=== PATIENT | female | born 1980 | race Caucasian/White ===

== ENCOUNTER 2022-04-17 18:17 | Emergency (ER) | payer MEDICAID ==
[~2022-04-17] VITALS: Ht 167.6 cm; Wt 81.6 kg
[2022-04-17] MEDS ORDERED: FAMO-132 PO (20:09)
[2022-04-17] MEDS ORDERED: AMOX500C2 PO (20:09)
[2022-04-17] MEDS ORDERED: AMOXicillin 250 MG CAPSULE ONE (20:12)
[2022-04-17] MEDS ORDERED: AMOXicillin 250 MG CAPSULE PO ONE (20:15)
--- NOTE | 2022-04-17 20:16 | NUR ---
Patient discharged to home in stable condition. Written and verbal after care instructions given. Patient verbalizes understanding of instructions. Stressed follow up or return to ER for worsening s/s. Patient out of ER with steady gait, no acute signs of distress, VSS, all belongings taken, provided a copy of xray results.
[2022-04-17 20:17] VITALS: BP 135/80
== END 2022-04-17 20:17 | disposition home or self-care (01) ==
LOC: ER 18:20
DX: R09.89 Other specified symptoms and signs involving the circulatory and respiratory systems (principal)
CPT/HCPCS: 70360; A4663

== ENCOUNTER 2022-09-05 22:53 | Emergency (ER) | payer MEDICAID, OTHER ==
[~2022-09-05] VITALS: Ht 167.6 cm; Wt 83.5 kg
[~2022-09-05 22:53] MED LIST: AMOX500C2 PO; FAMO-132 PO
--- NOTE | 2022-09-06 00:19 | NUR ---
Dr. Mathis at bedside. MSE in progress.
[2022-09-06 00:32] LABS: HEMATOCRIT 39.3 % (31.2-41.9); MEAN CORPUSCULAR HEMOGLOBIN 31.5 uug (24.7-32.8); MEAN CORPUSCULAR VOLUME 92.4 fL (75.5-95.3); PLATELET COUNT (AUTO) 170 K/uL (179-408)
--- NOTE | 2022-09-06 00:40 | NUR ---
Chaperoned Dr. Mathis for pelvic exam.
[2022-09-06 00:41] LABS: CARBON DIOXIDE 28 mmol/L (21-32); CHLORIDE 103 mmol/L (98-107); GLUCOSE 124 mg/dL (74-106); POTASSIUM 3.6 mmol/L (3.5-5.1); UREA NITROGEN, BLOOD 13 mg/dL (7-18)
[2022-09-06 00:49] LABS: *BILIRUBIN,URIN NEGATIVE (NEGATIVE); *BLOOD, URINE NEGATIVE (NEGATIVE); *CLARITY,URINE CLEAR (CLEAR); *COLOR,URINE YELLOW (YELLOW); *KETONES,URINE NEGATIVE (NEGATIVE); *UROBILINOGEN,URINE 0.2 E.U./dl (NORMAL); LEUKOCYTE ESTERASE ,URINE NEGATIVE (NEGATIVE); NITRITE, URINE NEGATIVE (NEGATIVE); UGLUCOSE NEGATIVE (NEGATIVE)
[2022-09-06 00:55] LABS: ALANINE AMINOTRANSFERASE 27 U/L (14-59); ALKALINE PHOSPHATASE 69 U/L (50-136); ASPARTATE AMINOTRANSFERASE 17 U/L (15-37); BILIRUBIN,DIRECT < 0.1 mg/dL (0.0-0.2); BILIRUBIN,TOTAL 0.2 mg/dL (0.2-1.0); LIPASE 304 U/L (73-393); TOTAL PROTEIN, SERUM 7.1 g/dL (6.4-8.2)
--- NOTE | 2022-09-06 02:02 | NUR ---
Patient discharged to home in stable condition. A/O x 4. NAD noted. Ambulatory with a steady gait. All belongings with patient. Written and verbal after care instructions given. Patient verbalizes understanding of instructions. Stressed follow up or return to ER for worsening s/s.
[2022-09-06 02:05] VITALS: BP 118/74
== END 2022-09-06 02:02 | disposition home or self-care (01) ==
LOC: ER 23:03
DX: R10.30 Lower abdominal pain, unspecified (principal)
CPT/HCPCS: 36415; 83690; 85025; 93005

== ENCOUNTER 2023-01-01 11:33 | Emergency (ER) | payer OTHER ==
[~2023-01-01] VITALS: Ht 167.6 cm; Wt 85.7 kg
[2023-01-01 12:20] LABS: *BILIRUBIN,URIN NEGATIVE (NEGATIVE); *BLOOD, URINE 3+ (NEGATIVE); *CLARITY,URINE CLOUDY (CLEAR); *COLOR,URINE YELLOW (YELLOW); *KETONES,URINE NEGATIVE (NEGATIVE); LEUKOCYTE ESTERASE ,URINE 2+ (NEGATIVE); NITRITE, URINE NEGATIVE (NEGATIVE); UGLUCOSE NEGATIVE (NEGATIVE)
--- NOTE | 2023-01-01 12:34 | NUR ---
[email or web address], medical screening exam in progress
[2023-01-01 12:44] LABS: *URINE HCG, QUAL NEG (NEGATIVE)
[2023-01-01 12:51] LABS: HEMATOCRIT 40.2 % (31.2-41.9); MEAN CORPUSCULAR VOLUME 92.2 fL (75.5-95.3); PLATELET COUNT (AUTO) 138 K/uL (179-408)
[2023-01-01 13:02] LABS: CREATININE 0.8 mg/dL (0.6-1.3); POTASSIUM 3.8 mmol/L (3.5-5.1)
[2023-01-01] MEDS ORDERED: IBUPROFEN 600 MG TABLET PO ONE (13:30)
[2023-01-01] MEDS ORDERED: CEphaleXIN 500 MG CAPSULE PO ONE (13:30)
[2023-01-01] MEDS ORDERED: IBUP-1955 PO (13:33)
[2023-01-01] MEDS ORDERED: CEPH500T PO (13:33)
[2023-01-01 13:34] LABS: BACTERIA,URINE MODERATE /HPF (NONE SEEN); SQUAMOUS EPITHELIAL CELL,UR MANY /HPF (NONE SEEN); WBC,URINE 20-50 /HPF (0-3)
[2023-01-01] MEDS ORDERED: IBUPROFEN 600 MG TABLET ONE (13:38)
[2023-01-01] MEDS ORDERED: CEphaleXIN 500 MG CAPSULE ONE (13:39)
--- NOTE | 2023-01-01 13:45 | NUR ---
Patient discharged to home in stable condition with brisk steady gait. Written and verbal after care instructions given. Patient verbalizes understanding and compliance of instructions. Stressed follow up with primary doctor or return to ER for worsening s/s Copies of all tests' results were given to patient..
[2023-01-01 13:56] VITALS: BP 120/74
== END 2023-01-01 13:45 | disposition home or self-care (01) ==
LOC: ER 11:35
DX: N39.0 Urinary tract infection, site not specified (principal); R10.30 Lower abdominal pain, unspecified
CPT/HCPCS: 36415; 84703; 85025; A4663

== ENCOUNTER 2023-01-04 09:58 | Emergency (ER) | payer OTHER ==
[~2023-01-04] VITALS: Ht 167.6 cm; Wt 84.4 kg
[~2023-01-04 09:58] MED LIST changes: +CEPH500T PO; +IBUP-1955 PO
[2023-01-04] MEDS ORDERED: IV NORMAL SALINE 1000 ML BAG IV ONE (10:00)
[2023-01-04 10:27] LABS: *BILIRUBIN,URIN NEGATIVE (NEGATIVE); *CLARITY,URINE CLEAR (CLEAR); *COLOR,URINE YELLOW (YELLOW); *KETONES,URINE NEGATIVE (NEGATIVE); *UROBILINOGEN,URINE 0.2 E.U./dl (NORMAL); LEUKOCYTE ESTERASE ,URINE NEGATIVE (NEGATIVE); NITRITE, URINE NEGATIVE (NEGATIVE); UGLUCOSE NEGATIVE (NEGATIVE)
[2023-01-04 10:30] LABS: *URINE HCG, QUAL NEGATIVE (NEGATIVE)
[2023-01-04 10:31] LABS: *BLOOD, URINE NEGATIVE (NEGATIVE)
[2023-01-04 10:38] LABS: HEMATOCRIT 40.5 % (31.2-41.9); MEAN CORPUSCULAR HEMOGLOBIN 30.6 uug (24.7-32.8); MEAN CORPUSCULAR VOLUME 92.7 fL (75.5-95.3); PLATELET COUNT (AUTO) 173 K/uL (179-408)
[2023-01-04] MEDS ORDERED: KETOROLAC TROMETHAMINE 15 MG INJ ONE (10:54)
[2023-01-04] MEDS ORDERED: ONDANSETRON 4 MG/2 ML VIAL ONE (10:54)
[2023-01-04] MEDS ORDERED: ONDA4TAB5 PO (10:55)
[2023-01-04 10:58] LABS: BILIRUBIN,DIRECT 0.1 mg/dL (0.0-0.2); BILIRUBIN,TOTAL 0.3 mg/dL (0.2-1.0); CREATININE 0.7 mg/dL (0.6-1.3); POTASSIUM 3.8 mmol/L (3.5-5.1); TOTAL PROTEIN, SERUM 7.2 g/dL (6.4-8.2)
[2023-01-04] MEDS ORDERED: KETOROLAC TROMETHAMINE 15 MG INJ IVP ONE (11:00)
[2023-01-04] MEDS ORDERED: ONDANSETRON 4 MG/2 ML VIAL IV ONE (11:00)
--- NOTE | 2023-01-04 11:12 | NUR ---
Pelvic ultrasound conducted at bedside.
--- NOTE | 2023-01-04 12:31 | NUR ---
Patient discharged to home in stable condition. Written and verbal after care instructions given. Patient verbalizes understanding of instructions. IV removed. Stressed follow up or return to ER for worsening s/s.
[2023-01-04 12:53] VITALS: BP 148/93
== END 2023-01-04 12:31 | disposition home or self-care (01) ==
LOC: ER 09:58
DX: R10.2 Pelvic and perineal pain (principal); R11.0 Nausea; R19.7 Diarrhea, unspecified; Z87.440 Personal history of urinary (tract) infections; R03.0 Elevated blood-pressure reading, without diagnosis of hypertension
CPT/HCPCS: 99284; 96374; 76856; 96361; 96375; 80076; 80048; 81003; 84703; 83690; 85025; 36415; J1885; J2405; J7040; A4663

== ENCOUNTER 2024-04-03 06:03 | Emergency (ER) | payer MEDICAID, OTHER ==
[~2024-04-03] VITALS: Ht 167.6 cm; Wt 90.7 kg
[~2024-04-03 06:03] MED LIST changes: -AMOX500C2 PO; +ONDA4TAB5 PO
[2024-04-03] MEDS ORDERED: BENZ200C53 PO (06:20)
[2024-04-03] MEDS ORDERED: ALBU8.5H8 IH (06:20)
[2024-04-03 07:47] VITALS: O2SAT 100
== END 2024-04-03 07:48 | disposition home or self-care (01) ==
LOC: ER 06:05
DX: J06.9 Acute upper respiratory infection, unspecified (principal); R05.9 Cough, unspecified; R09.81 Nasal congestion; Z98.890 Other specified postprocedural states; Z79.899 Other long term (current) drug therapy
CPT/HCPCS: 71045; 93005; A4606; A4663

== ENCOUNTER 2025-09-28 17:58 | Emergency (ER) | payer MEDICAID, OTHER ==
[~2025-09-28] VITALS: Ht 167.6 cm; Wt 90.7 kg
[~2025-09-28 17:58] MED LIST changes: +ALBU8.5H8 IH; +BENZ200C53 PO; -CEPH500T PO; -FAMO-132 PO; -IBUP-1955 PO; -ONDA4TAB5 PO
[2025-09-28 18:01] VITALS: BP 143/89
[2025-09-28 18:19] LABS: *BILIRUBIN,URIN NEGATIVE (NEGATIVE); *BLOOD, URINE 2+ (NEGATIVE); *CLARITY,URINE CLEAR (CLEAR); *COLOR,URINE YELLOW (YELLOW); *KETONES,URINE NEGATIVE (NEGATIVE); *PROTEIN,URINE NEGATIVE (NEGATIVE); *UROBILINOGEN,URINE 0.2 E.U./dl (NORMAL); LEUKOCYTE ESTERASE ,URINE NEGATIVE (NEGATIVE); NITRITE, URINE NEGATIVE (NEGATIVE); UGLUCOSE NEGATIVE (NEGATIVE)
[2025-09-28 18:21] LABS: *URINE HCG, QUAL NEGATIVE (NEGATIVE)
[2025-09-28 18:36] LABS: SQUAMOUS EPITHELIAL CELL,UR MODERATE /HPF (NONE SEEN)
[2025-09-28 18:37] VITALS: BP 143/89; TEMP 97.7; O2SAT 98
== END 2025-09-28 18:37 | disposition home or self-care (01) ==
LOC: ER 18:03
DX: N93.9 Abnormal uterine and vaginal bleeding, unspecified (principal); B37.9 Candidiasis, unspecified; F17.290 Nicotine dependence, other tobacco product, uncomplicated; Z79.3 Long term (current) use of hormonal contraceptives; Z90.49 Acquired absence of other specified parts of digestive tract
CPT/HCPCS: 84703; A4606; A4663